=== PATIENT | female | born 1950 ===

== ENCOUNTER 2018-08-09 00:52 | Inpatient (IN) | payer MEDICARE, BC ==
[2018-08-08 16:09] LABS: INR 0.97
[2018-08-09] VITALS (12 sets, daily range): BP systolic 106–128; BP diastolic 41–81
[~2018-08-09] VITALS: Ht 167.6 cm; Wt 93.9 kg
[~2018-08-09 00:52] MED LIST: CETI10CA8 PO; DULO60CA7 PO; FENO54TA6 PO; LOSA100T75 PO; METFORMIN ER PO; OMEP-125 PO; OXYB-13 PO; OXYB5TAB86 PO; OXYC-823 PO; oxycodone PO
[2018-08-09] MEDS ORDERED: TRANEXAMIC AC 1000 MG/10ML SDV 1,000 MG in DEXTROSE 5% 50 ML BAG 50 ML IV ONE (06:15)
[2018-08-09] MEDS ORDERED: NORMOSOL R SOLN(*) 1000 ML BAG 1,000 ML IV PRN (06:15)
[2018-08-09] MEDS ORDERED: PREGABALIN 150 MG CAPSULE PO ONE (06:15)
[2018-08-09] MEDS ORDERED: LIDOCAINE/SOD BICARB 8.4% SYR ID ONE (06:15)
[2018-08-09] MEDS ORDERED: ROPIVACAINE/EPI/CLONIDINE/KET 50 ML SYRINGE INJ ONE (06:15)
[2018-08-09] MEDS ORDERED: MIDAZOLAM 2 MG/2 ML VIAL IVP PRN (06:15)
[2018-08-09] MEDS ORDERED: CELECOXIB 200 MG CAP PO ONE (06:15)
[2018-08-09] MEDS ORDERED: THROMBIN TOP SOLN 5000INTLU VL ONE ×2 (10:53→13:11)
[2018-08-09] MEDS ORDERED: fentaNYL CITR 100 MCG/2 ML AMP ONE (11:02)
[2018-08-09] MEDS ORDERED: ONDANSETRON 4 MG/2 ML VIAL ONE (11:04)
[2018-08-09] MEDS ORDERED: LIDOCAINE MPF 1% 5 ML VIAL ONE (11:04)
[2018-08-09] MEDS ORDERED: DEXAMETHASONE SOD PHOS 10MG/ML ONE (11:04)
[2018-08-09] MEDS ORDERED: PROPOFOL EMUL(*) 10MG/ML 20 ML 20 ML ONE (11:04)
[2018-08-09] MEDS ORDERED: VANCOMYCIN(*) 1 GM VIAL 1 GM, VANCOMYCIN (*) 0.5 GM VIAL 0.5 GM in NS(*) 0.9% 250 ML BA... IVPB ONE (11:58)
[2018-08-09] MEDS ORDERED: ROCURONIUM BROM 10 MG/ML 5 ML ONE (13:28)
[2018-08-09] MEDS ORDERED: ESMOLOL 10 MG/ML 10ML SDV ONE (13:35)
[2018-08-09] MEDS ORDERED: ROPIVACAINE 0.2% 20 ML VIAL ONE (13:43)
[2018-08-09] MEDS ORDERED: EPINEPHrine HCL 1 MG/ML AMP ONE (13:43)
[2018-08-09] MEDS ORDERED: NS 0.9% 20 ML SDV 20 ML ONE (13:44)
[2018-08-09] MEDS ORDERED: SUGAMMADEX SOD 200 MG/2 ML SDV ONE (14:05)
[2018-08-09] MEDS ORDERED: KCL/D5LR 20 MEQ/1000 ML PREMIX 1,000 ML IV PRN (16:00)
[2018-08-09] MEDS ORDERED: FLUSH 10 ML SYR IVP PRN (16:00)
[2018-08-09] MEDS ORDERED: diphenhydrAMINE 25 MG CAP PO PRN (16:00)
[2018-08-09] MEDS ORDERED: ONDANSETRON 4 MG/2 ML VIAL IVP PRN (16:00)
[2018-08-09] MEDS ORDERED: PROMETHAZINE 25 MG/ML 1 ML AMP IVP PRN (16:00)
[2018-08-09] MEDS ORDERED: MAGNESIUM CITRATE 300 ML BTL PO PRN (16:00)
[2018-08-09] MEDS ORDERED: oxyCODONE HCL 5 MG CAP PO PRN (16:10)
--- NOTE | 2018-08-09 16:22 | RADIOLOGY IMAGING REPORT ---
FACILITY: [facility] PATIENT NAME: Renetta King : 1950 MR: [id number] V: [id number] EXAM DATE: ORDERING PHYSICIAN: DEEP REED TECHNOLOGIST: Location: [facility] Patient: Renetta King : 1950 Visit/Account:[id number] Date of Sevice: 08/09/2018 SHOULDER 1 VIEW LEFT COMPARISON: None. HISTORY: S/P TOTAL SHOULDER ARTHROPLASTY TECHNIQUE: One view of the left shoulder FINDINGS: BONES: Left shoulder arthroplasty in good alignment without evidence of periprosthesis fracture, loo sening or other complication. Advanced facet joint hypertrophy in the visualized cervical spine. SOFT TISSUES: Negative. No visible soft tissue swelling. EFFUSION: None suggested. OTHER: Negative. IMPRESSION: Left shoulder arthroplasty in good alignment without radiographic complication. Report Dictated By: Jose Ruffin at 08/09/2018 4:17 PM Report E-Signed By: Jose Ruffin at 08/09/2018 4:18 PM WSN:[email or web address]
--- NOTE | 2018-08-09 17:27 | OPERATIVE REPORT 1 ---
EVENT DATE: August 09, 2018 SURGEON: Oscar Damian MD ANESTHESIOLOGIST: Stephan Lopez MD ANESTHESIA: General plus scalene block. [employer] OPERATOR HELPER: Shalom eWtzel PA-C PREOPERATIVE DIAGNOSIS Left shoulder degenerative joint disease. POSTOPERATIVE DIAGNOSIS Left shoulder degenerative joint disease. PROCEDURE PERFORMED Left total shoulder arthroplasty (24038). ESTIMATED BLOOD LOSS 150. INTRAVENOUS FLUIDS Crystalloid 1300, no colloid. TOURNIQUET TIME None. SPECIMENS None. COMPLICATIONS None. IMPLANTS USED [employer] 10 body, 10 stem, 48 x 21 eccentric head with 44 [place] Peg Glenoid. SUMMARY OF PROCEDURE The patient was brought into the operating room and placed on the OR table in the supine position. She was given a scalene block under ultrasound guidance with Dr. Lopez, after which she was given a light general anesthetic. She was placed in a semi-beach chair position using a standard table and a bump under the scapula. We brought in a padded [place] as necessary. The arm was prepped and draped in the usual sterile fashion. We did a deltopectoral approach, deepened through skin and subcutaneous tissue by blunt spreading. The cephalic vein was identified, but it was extremely small, and we were not certain if this was the only cephalic vein with another one potentially hidden within the deltoid, but in any case, we left it with the deltoid and retracted it. We developed a subdeltoid plane, palpated the axillary nerve, and then retracted the conjoined tendon. The subscapularis was incised and then tagged, and sutures were placed. The humeral head was cut in its anatomic angle using the guide, and then the osteophytes were removed, after which I used a rasp to trim the tissue. We placed a protective cap and then sought access to the glenoid. It was actually quite challenging, and we ended up having to try various different retractors. I did a circumferential strip of the capsule off the humeral neck as well as around the glenoid several times and also removed the labrum. Ultimately, we actually did get quite good access to the glenoid. It was sized at a 44, and then the [place] Peg central hole was drilled, followed by the peripheral holes. We trialed it and got very good fixation with full seating down into the base. I had reamed a moderate amount. The head also was noted to be somewhat collapsed. Consequently, we felt that we probably would end up going bigger than an 18, but we did trial, so first we started with the final cementation of the glenoid. This was accomplished by irrigating, followed by placement of thrombin-soaked Gelfoam. We mixed cement, injected into the peripheral drill holes after removing the thrombin-soaked Gelfoam and drying the entry points. We then placed the insert and then held it until full polymerization. We injected peripherally with the local anesthetic within the joint and then moved on with the head. The protective cap was removed. There had been some deformation with the proximal cut surface due to the pressure applied during access to the glenoid, but she had very good bone, and therefore, I did not feel that this was going to compromise stability in any way. We progressively reamed up to a size 10. I needed to use the motor reamer at the end because of the density of bone. We had let the bone cool between reaming. Finally, we placed the Brosteotome, set the version, and then the final trial. We trialed an 18 eccentric and a 21 eccentric, and it looked like the 21 had the best fit within the joint and made up for the collapsed head as well as the reaming on the glenoid. After having trialed both the 21 and the 18, we selected the 21. The trial was removed. Drill holes were placed in the neck of the humerus for later augmentation of the subscapularis repair. The insert was placed. It was driven home to its huslia position, and we checked again for position. It seemed to fit well. The capsule was then repaired along with the subscapularis, having irrigated the wound including with Irrisept. We only ended up needing the lowermost of the transosseous augmentation sutures. We pulled the tagging sutures out, made sure the interval was closed, and ranged the shoulder again. It was normal. We did note that the very small cephalic vein had during the course of retraction. It was not really bleeding much. We just cauterized it and then closed the interval with 0 Vicryl, followed by repeat irrigation and then closure of the subcutaneous tissue with 3-0 Vicryl, followed by 4-0 Monocryl. A dry, sterile dressing was applied. She was awakened and transferred to Recovery in stable condition. DENYS
[2018-08-09] MEDS ORDERED: INSULIN HUM LISPRO 100 UN/ML 3 ML VIAL SUBQ PRN (19:35)
--- NOTE | 2018-08-09 19:35 | Hospitalist Consultation ---
History of Present Illness Requesting Physician Dr. Damian Reason for Consult Depression History of Present Illness This patient was admitted for shoulder surgery. It is reported that the surgery went well and was without complication. History Problems: (1) HTN (hypertension) Status: Chronic (2) T2DM (type 2 diabetes mellitus) Status: Chronic (3) Hyperlipemia Status: Chronic Home Meds Reported Medications [Metformin Er] No Conflict Check, 750 MG PO DAILY 08/01/18 Omeprazole (OMEPRAZOLE) 20 Mg Capsule.dr, 1 CAP PO QDAY, CAP 08/01/18 Cetirizine Hcl (ZYRTEC) 10 Mg Capsule, 10 MG PO QDAY, CAPSULE 08/01/18 Oxybutynin Chloride (OXYBUTYNIN CHLORIDE) 5 Mg Tablet, 5 MG PO QDAY, TAB 02/10/17 Duloxetine HCl (Duloxetine HCl) 60 Mg Capsule.dr, 1 TAB PO DAILY 02/01/17 Fenofibrate (FENOFIBRATE) 54 Mg Tablet, 54 MG PO QDAY 02/01/17 Losartan Potassium (LOSARTAN POTASSIUM) 100 Mg Tablet, 100 MG PO QDAY 02/01/17 Allergies: Coded Allergies: amoxicillin (Verified Allergy, Severe, HIVES, 02/01/17) erythromycin base (Verified Allergy, Severe, HIVES/GI DISTRESS, 02/01/17) acetaminophen (Verified Adverse Reaction, Intermediate, D/T FATTY LIVER DZ, 08/09/18) Patient History: FH: CHF (congestive heart failure) MOTHER FH: diabetes mellitus CHILD FH: hypertension CHILD FHx: heart disease CHILD FHx: heart failure FATHER FHx: schizophrenia MOTHER Hx Smoking: Yes (SMOKED 1 PPD X 24 YRS. QUIT 1986.) Smoking Status: Former Smoker Caffeine Intake: Coffee Caffeine/Cups Per Day: 4 Hx Alcohol Use: Yes Hx Substance Use Disorder: Yes Social Drug Use: Former Social Drugs: Marijuana Amount Of Social Drug/s Used: DAILY When Quit Social Drugs?: 30 YRSAGO History of IV Drug Use: No Review of Systems All Systems Reviewed/Normal: Yes Exam Vital Signs Vital Signs Date Time Temp Pulse Resp B/P (MAP) Pulse Ox O2 Delivery O2 Flow Rate FiO2 08/09/18 18:39 98.0 77 14 124/69 (87) 93 Nasal Cannula 2.5 Neuro: No Gross deficits Eyes: PERRLA Cardiovascular: Regular Rate and Rhythm Respiratory: Clear to Auscultation GI: Abd Soft and Non-Tender Extremities: No Edema Integumentary: No Cyanosis Medical Decision Making Data Points Result Diagram: 08/09/18 1546 Assessment and Plan Problems: (1) Status post total shoulder arthroplasty Status: Acute (2) T2DM (type 2 diabetes mellitus) Status: Chronic Assessment & Plan: She is on chronic treatment with metformin. We have also placed her on sliding scale level #1. (3) HTN (hypertension) Status: Chronic Assessment & Plan: She is on chronic treatment with losartan. Venous Thromboembolism Antithrombotics Is Pt On Any Antithrombotics?: No Exam Sepsis Risk: No Definite Risk JADON STEEL DO Aug 09, 2018 19:35
[2018-08-10 02:49] VITALS: BP 135/79
[2018-08-10 06:18] LABS: PLATELET COUNT, AUTOMATED 209 K/uL (150-450)
[2018-08-10 06:49] VITALS: BP 113/71
[2018-08-10] MEDS ORDERED: DULoxetine HCL 30 MG CAPCR PO SCH (09:00)
[2018-08-10] MEDS ORDERED: PANTOPRAZOLE SOD 40 MG TABEC PO SCH (09:00)
[2018-08-10] MEDS ORDERED: OXYBUTYNIN CHL 5 MG TAB PO SCH (09:00)
[2018-08-10] MEDS ORDERED: FENOFIBRATE 54 MG TAB PO SCH (09:00)
[2018-08-10] MEDS ORDERED: LOSARTAN POTASSIUM 50 MG TAB PO SCH (09:00)
[2018-08-10] MEDS ORDERED: CETIRIZINE HCL 10 MG TAB PO SCH (09:00)
--- NOTE | 2018-08-10 09:26 | NUR ---
Occupational Therapy Impression Pt alert and agreeable to OT tx. No pain reported. Reviewed precautions, wear/fir of sling, ther ex per protocol and ADLs. Independent bed mobility. Independent UB/LB dressing. Independent ther ex (pulleys provided for home use and handout). Pt plans to make outpatient PT appt. Sunday when clinics are open. SpO2 WNL on room air. Pt with no further questions/concerns for OT at this time. Pt ready for discharge when medically appropriate. Occupational Therapy Goals Patient's Goal
[2018-08-10 10:13] VITALS: Ht 167.6 cm; Wt 93.9 kg
[2018-08-10] MEDS ORDERED: OXYC5TAB38 PO (11:41)
== END 2018-08-10 12:45 | disposition home or self-care (01) | DRG 483 ==
LOC: OR 00:52 → MED 16:43
PROVIDERS: ADMIT Orthopaedic Surgery Hand Surgery; ATTEND Orthopaedic Surgery Hand Surgery
PROC: 0RRK0JZ Replacement of Left Shoulder Joint with Synthetic Substitute, Open Approach (ICD-10-PCS; principal; 2018-08-09 13:05)
DX: M19.012 Primary osteoarthritis, left shoulder (principal); I10 Essential (primary) hypertension; E11.9 Type 2 diabetes mellitus without complications; G47.33 Obstructive sleep apnea (adult) (pediatric); K21.9 Gastro-esophageal reflux disease without esophagitis; E78.5 Hyperlipidemia, unspecified; Z88.0 Allergy status to penicillin; Z88.1 Allergy status to other antibiotic agents; Z88.8 Allergy status to other drugs, medicaments and biological substances; Z87.891 Personal history of nicotine dependence; Z79.84 Long term (current) use of oral hypoglycemic drugs; Z99.81 Dependence on supplemental oxygen; Z90.49 Acquired absence of other specified parts of digestive tract; Z90.710 Acquired absence of both cervix and uterus
CPT/HCPCS: 36415; 36416; 82948; 85014; 85018; 85025; 85610; 86850; 86900; 86901; 97165; A4565; C1713; C1776; J0171; J1100; J2001; J2250; J2405; J2704; J2795; J3010; J3370; J3490; J7050; J7060